=== PATIENT | male | born 1950 | race Caucasian/White ===

== ENCOUNTER → 2016-07-15 | Outpatient (CLI) | payer OTHER ==
[~2016-07-15] MED LIST: LISI40TA PO; SIMV40TA4 PO; WARF2TAB PO
== END | disposition home or self-care (01) ==
LOC: C.RDSM 13:49
PROVIDERS: ATTEND Physical Medicine & Rehabilitation Sports Medicine
DX: Z96.641 Presence of right artificial hip joint (principal); M16.11 Unilateral primary osteoarthritis, right hip

== ENCOUNTER → 2017-07-14 | Outpatient (CLI) | payer OTHER | END | disposition home or self-care (01) | LOC: C.RDSM 09:40 | PROVIDERS: ATTEND Physical Medicine & Rehabilitation Sports Medicine | DX: Z96.641 Presence of right artificial hip joint (principal); M16.11 Unilateral primary osteoarthritis, right hip ==

== ENCOUNTER → 2017-09-23 | Outpatient (CLI) | payer OTHER ==
[2017-09-23 10:21] LABS: BLOOD UREA NITROGEN 14 mg/dl (7-18); CALCIUM 9.1 mg/dl (8.5-10.1); CARBON DIOXIDE 27 mmol/L (21-32); CHOLESTEROL 142 mg/dl (0-200); CREATININE 1.08 mg/dl (0.60-1.40); GLUCOSE 102 mg/dl (70-99); POTASSIUM 3.2 mmol/L (3.5-5.1); SODIUM 138 mmol/L (136-145)
[2017-09-23 10:25] LABS: LDL CHOLESTEROL CALCULATED 69 mg/dl
== END | disposition home or self-care (01) ==
LOC: C.LAB1850 08:43
PROVIDERS: ATTEND Family Medicine
DX: I10 Essential (primary) hypertension (principal); Z72.0 Tobacco use